=== PATIENT | male | born 1965 | race Hispanic/Latino ===

== ENCOUNTER 2019-01-01 16:04 | Emergency (ER) | payer BC ==
[~2019-01-01] VITALS: Ht 172.7 cm; Wt 88.5 kg
[~2019-01-01 16:04] MED LIST: QUINAPRIL HCL5 MG
--- OUTSIDE RECORDS SUMMARY | 2019-01-01 16:12 | XMS REPORT | Continuity of Care Document ---
Author Author Seva Search [facility] Seva Search Address Unknown Phone Unavailable Care Team Providers Care Portable Pinch Riveter Name Role Phone [facility] Visible Measures [place] Unavailable Unavailable Problems Problem Status Onset Date Classification Date Reported Comments Source Upper respiratory infection Problem 05/15/2016 [facility] Medications Medication Details Route Status Patient Instructions Ordering Provider Order Date Source Amoxicillin 875 MG / Clavulanate 125 MG Oral Tablet [Augmentin] Augmentin 875 mg-125 mg tablet Take 1 tablet every 12 hours by oral route for 7 days. Active [facility] quinapril 5 MG Oral Tablet quinapril 5 mg tablet Active [facility] Allergies, Adverse Reactions, Alerts No Known Medication Allergies Immunizations No Data Provided for This Section Results No Data Provided for This Section Pathology Reports No Data Provided for This Section Diagnostic Reports No Data Provided for This Section Consultation Notes No Data Provided for This Section Discharge Summaries No Data Provided for This Section History and Physicals No Data Provided for This Section Vital Signs Vital Sign Value Date Comments Source Diastolic (mm Hg) 84 05/15/2016 [facility] Height 68 05/15/2016 [facility] Systolic (mm Hg) 132 05/15/2016 [facility] Weight 195 05/15/2016 [facility] Encounters Location Location Details Encounter Type Encounter Number Reason For Visit Attending Provider ADM Date DC Date Status Source [place] - [facility] - [id number] Christel Forman, WEB UI DESIGNER: [address] [place] [address], Ph. [id number] Christel Forman 05/15/2016 [facility] Procedures No Data Provided for This Section Assessment and Plan No Data Provided for This Section Plan of Care No Data Provided for This Section Social History Social History Date Source Smoking Status Never Smoker 05/15/2016 [facility] Family History No Data Provided for This Section Advance Directives No Data Provided for This Section Functional Status No Data Provided for This Section
--- OUTSIDE RECORDS SUMMARY | 2019-01-01 16:12 | XMS REPORT | Encounter Summary ---
Author Organization Unknown Address [address] [place] [address] Phone [phone] Reason for Visit Medical Complaint; cough, congestion, drainage x 4 days Instructions 1. Upper respiratory infection Augmentin 875 mg-125 mg tablet Discussion Note: None recorded. Patient educational handouts: No information available. Plan of Care Reminders Provider Appointments None recorded. Lab None recorded. Referral None recorded. Procedures None recorded. Surgeries None recorded. Imaging None recorded. Medications Name Start Date Augmentin 875 mg-125 mg tablet Take 1 tablet every 12 hours by oral route for 7 days. quinapril 5 mg tablet Medications Administered None recorded. Vitals Height Weight BMI Blood Pressure 5 ft 8 in 195 lbs 29.6 132/84 Lab Results None recorded. Allergies Name Reaction Severity Onset NKDA Problems Name Status Onset Date Source Upper Respiratory Infection Active Encounter Procedures None recorded. Vaccine List None recorded. Social History Smoking Status Never Smoker Past Encounters 05/15/2016 Upper Respiratory Infection CARLA Duarte: [address] [address], Ph. History of Present Illness [id number] Reported By: Patient HPI: Location: head/sinuses. Quality: productive cough, colored phlegm, nasal/sinus congestion. Duration: 4days. Severity: moderate. Onset/Timing: gradual. Context: no sick contacts, no foreign travel, non-smoker. Associated Symptoms: no shortness of breath, no wheezing, no change in number of pillows needed to sleep at night, no sweats, no significant weight gain, no significant weight loss, no morning cough, no sore throat, no vomiting, no diarrhea, no rash, no nausea, no fever, no muscle aches, no headache, yellow-green, thick sputum Review of Systems Basic Reported By: Patient Constitutional: Constitutional: fever Eyes: Eyes: no eye complaints Tjdd-Jtoi-Llydl-Throat: Ears: no ear complaints. Nose: nose/sinus problems. Mouth/Throat: no sore throat, no bleeding gums, no mouth complaints, no teeth problems Cardiovascular: Cardiovascular: no chest pain, no shortness of breath, no known heart murmur Respiratory: Respiratory: no wheezing, no shortness of breath, cough Gastrointestinal: Gastrointestinal: no abdominal pain, no vomiting / diarrhea Genitourinary: Genitourinary: no urinary complaints, no discharge Musculoskeletal: Musculoskeletal: no muscle aches, no muscle weakness, no arthralgias/joint pain, no back pain Skin: Skin: no abnormal / changing mole, no jaundice, no rashes Neurologic: Neurologic: no loss of consciousness, no weakness, no numbness, no seizures, no dizziness, no headaches Physical Exam Adult Basic, Adult Male Complete Constitutional: General Appearance: healthy-appearing, well-nourished, well-developed. Level of Distress: NAD. Ambulation: ambulating normally Psychiatric: Mental Status: active and alert. Orientation: to time, to place, to person Eyes: Pupils: PERRLA Sig-Rgbh-Hcrto-Throat: Ears: no lesions on external ear, no outer ear tenderness, TM mobility normal, TM erythematous, middle ear fluid. Hearing: no hearing loss. Nose: nares patent, no septal deviation, nasal passages clear, no sinus tenderness, nasal discharge, nasal discharge--rhinorrhea, post nasal drip. Lips, Teeth, and Gums: no mouth or lip ulcers, no bleeding gums, normal dentition. Oropharynx: moist mucous membranes, no erythema, no exudates, tonsils not enlarged Neck: Lymph Nodes: no cervical LAD, no supraclavicular LAD Lungs: Respiratory effort: no dyspnea, no tachypnea, no use of accessory muscles, no intercostal retractions. Auscultation: breath sounds normal, good air movement Cardiovascular: Heart Auscultation: RRR, no murmurs. Pulses including femoral / pedal: normal throughout Musculoskeletal:: Motor Strength and Tone: normal motor strength. Joints, Bones, and Muscles: normal movement of all extremities. Extremities: no cyanosis, no edema Neurologic: Gait and Station: normal gait, normal station. Cranial Nerves: grossly intact. Sensation: grossly intact Skin: Inspection and palpation: no rash, no lesions
--- OUTSIDE RECORDS SUMMARY | 2019-01-01 16:12 | XMS REPORT | Clinical Summary ---
Author Author [facility] Address Unknown Phone Unavailable Care Team Providers Care Barrel Charrer Helper Name Role Phone Jaime Ramon MD PCP Hugo Zamora Danni Unavailable Allergies No Known Allergies Medications End Date Status Medication Sig Dispensed Refills Start Date Active quinapril (ACCUPRIL) 10 Take 10 mg by 0 MG tablet mouth 2 (two) times daily. 12/07/2018 acetaminophen (TYLENOL) Take 2 90 tablet 0 325 MG tablet tablets (650 8 mg total) by mouth every 6 (six) hours for 360 days. 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 Encounters Care Team Description Date Type Specialty Yoon Michele, GUMARO Results 11/28/2018 Telephone Transplant Yoon Michele, RN Follow-up 11/13/2018 Telephone Transplant Yoon Michele, RN Follow-up 07/17/2018 Telephone Transplant Rommel Silveira MD Left sided chest pain (Primary Dx); Essential hypertension 07/16/2018 Emergency Emergency Medicine - 07/17/2018 07/16/2018 Orders Only General Internal Medicine 07/16/2018 Travel Yoon Michele, RN Results 05/28/2018 Telephone Transplant Yoon Michele, RN Appointment 05/17/2018 Telephone Transplant Yoon Michele, RN Results 04/16/2018 Telephone Transplant Yoon Michele, RN Follow-up 04/09/2018 Telephone Transplant Yoon Michele, RN Follow-up 04/02/2018 Telephone Transplant after 12/31/2017 Family History Medical History Relation Name Comments Diabetes Brother Heart attack Brother Hypertension Brother No Known Problem Daughter No Known Problem Daughter No Known Problem Daughter Coronary artery disease Father s/p ACB Diabetes Father Hypertension Father Stroke Father No Known Problem Maternal unknown Grandfather No Known Problem Maternal unknown Grandmother Diabetes Maternal Uncle Diabetes Maternal Uncle Diabetes Mother No Known Problem Paternal unknown Grandfather No Known Problem Paternal unknown Grandmother Hypertension Paternal Uncle Relation Name Status Comments Brother Alive Daughter Alive Daughter Alive Daughter Alive Father Maternal Grandfather Maternal Grandmother Maternal Uncle Maternal Uncle Alive Mother Alive Paternal Grandfather Paternal Grandmother Paternal Uncle Alive Social History Date Tobacco Use Types Packs/Day Years Used Started: 2016 Former Smoker Cigarettes Smokeless Tobacco: Never Used Tobacco Cessation: Ready to Quit: Yes; Counseling Given: Yes Comments: smoked a long time ago, smoked again x 1 year and quit 09/2017 Alcohol Use Drinks/Week oz/Week Comments Yes 2 beers/month Sex Assigned at Date Recorded Not on file Industry Job Start Date Occupation Not on file Not on file Not on file Travel End Travel History Travel Start No recent travel history available. Last Filed Vital Signs Time Taken Vital Sign Reading 07/16/2018 10:00 PM [employer]IDE [employer]ER TE[employer] Blood Pressure 146/89 07/16/2018 7:48 PM [employer] Pulse 64 07/16/2018 7:48 PM [employer]IDE [employer]ER TESTER Temperature 37.3 C (99.2 F) 07/16/2018 7:48 PM [employer]IDE [employer] TESTER Respiratory Rate 16 07/16/2018 10:00 PM INSIDE METER TESTER Oxygen Saturation 97% - Inhaled Oxygen - Concentration 07/16/2018 7:47 PM INSIDE METER TESTER Weight 88.5 kg (195 lb) 07/16/2018 7:47 PM INSIDE [employer]ER TE[employer] Height 172.7 cm (5' 8") 07/16/2018 7:47 PM INSIDE [employer]ER TESTER Body Mass Index 29.65 Plan of Treatment Not on file Procedures Comments Procedure Name Priority Date/Time Associated Diagnosis REPORT OF PROCEDURE - 07/18/2018 ENDOSCOPY SCAN 2:57 PM INSIDE METER TESTER ECG 12-LEAD Routine 07/16/2018 11:40 PM INSIDE METER TESTER TROPONIN I STAT 07/16/2018 11:01 PM INSIDE METER TESTER ED ECG INTERPRETATION Routine 07/16/2018 9:03 PM INSIDE METER TESTER CBC W/PLT COUNT & AUTO STAT 07/16/2018 DIFFERENTIAL 8:38 PM INSIDE METER TESTER CREATINE KINASE (CK) STAT 07/16/2018 8:38 PM INSIDE METER TESTER MAGNESIUM STAT 07/16/2018 8:38 PM INSIDE METER TESTER B-TYPE NATRIURETIC FACTOR STAT 07/16/2018 (BNP) 8:38 PM INSIDE METER TESTER TROPONIN I STAT 07/16/2018 8:38 PM INSIDE METER TESTER BASIC METABOLIC PANEL (7) STAT 07/16/2018 8:38 PM INSIDE METER TESTER CBC W/PLT COUNT & AUTO STAT 07/16/2018 DIFFERENTIAL 8:38 PM INSIDE METER TESTER XR CHEST 1 VIEW STAT 07/16/2018 PORTABLE/BEDSIDE 8:37 PM INSIDE METER TESTER ECG 12-LEAD STAT 07/16/2018 7:41 PM INSIDE METER TESTER ECG 12-LEAD Routine 07/16/2018 7:41 PM INSIDE METER TESTER Procedure Note - Interface, External Ris In - 07/16/2018 8:58 PM INSIDE METER TESTER Ventricula r Rate 63 BPM Atrial Rate 63 BPM P-R Interval 132 ms QRS Duration 90 ms Q-T Interval 384 ms QTC Calculatio n(Bazett) 392 ms P [place] 37 degrees R R[place] 55 degrees T [place] 18 degrees Normal sinus rhythm Normal ECG When compared with ECG of 8 08:40, No significan t change was found after 12/31/2017 Results * EKG-SCANNED (07/18/2018 2:57 PM INSIDE METER TESTER) Narrative Performed At * ECG 12 lead (07/16/2018 11:40 PM INSIDE METER TESTER) Only the most recent of 2 results within the time period is included. Specimen Narrative Performed At Ventricular Rate 59 BPM GE MUSE Atrial Rate 59 BPM P-R Interval 122 ms QRS Duration 86 ms Q-T Interval 396 ms QTC Calculation(Bazett) 392 ms P [place] 47 degrees R [place] 34 degrees T [place] 24 degrees Sinus bradycardia Otherwise normal ECG When compared with ECG of 16-JUL-2018 19:41, No significant change was found Confirmed by MD Moore Roberto ([id number]) on 07/18/2018 10:29:27 AM Procedure Note Interface, External Ris In - 07/18/2018 10:29 AM INSIDE METER TESTER Ventricular Rate 59 BPM Atrial Rate 59 BPM P-R Interval 122 ms QRS Duration 86 ms Q-T Interval 396 ms QTC Calculation(Bazett) 392 ms P [place] 47 degrees R [place] 34 degrees T [place] 24 degrees Sinus bradycardia Otherwise normal ECG When compared with ECG of 16-JUL-2018 19:41, No significant change was found Confirmed by MD Moore Roberto ([id number]) on 07/18/2018 10:29:27 AM Performing Organization Address City/State/Zipcode Phone Number GE MUSE * Troponin I (07/16/2018 11:01 PM INSIDE METER TESTER) Only the most recent of 2 results within the time period is included. Troponin I <0.01 0.00 - 0.03 ng/mL [facility] Specimen Blood Narrative Performed At Troponin I (TnI) levels must be interpreted in the context of the presenting [facility] symptoms and the clinical findings. Elevated TnI levels indicate myocardial [facility] damage, but are not specific for ischemic heart disease. Elevated TnI levels are seen in patients with other cardiac conditions (including myocarditis and congestive heart failure), and slight TnI elevations occur in patients with other conditions, including sepsis, renal failure, acidosis, acute neurological disease, and persistent tachyarrhythmia. Performing Organization Address City/State/Zipcode Phone Number [facility] [address] [place] [address] [phone] [place] [address] * ECG/EKG Interpretation (07/16/2018 9:03 PM INSIDE METER TESTER) Narrative Performed At Rommel Silveira MD 07/17/2018 12:06 AM ECG/EKG Interpretation Date/Time: 07/16/2018 9:05 PM Performed by: Rommel Silveira MD Authorized by: Rommel Silveira MD The ECG was interpreted by ED physician. The ECG is interpreted as sinus rhythm. Rate is normal rate. Heart rate is [address] segments normal. T-wave inversion in lead(s) III. Clinical Impression: non-specific ECGECG reviewed and does not meet STEMI criteria. Patient tolerance: Patient tolerated the procedure well with no immediate complications * CBC with platelet count + automated diff (07/16/2018 8:38 PM INSIDE METER TESTER) WBC 10.4 3.5 - 10.5 K/L [facility] RBC 5.51 4.63 - 6.08 M/L [facility] Hemoglobin 16.2 13.7 - 17.5 GM/DL [facility] Hematocrit 48.1 40.1 - 51.0 % [facility] MCV 87.3 79.0 - 92.2 fL [facility] MCH 29.4 25.7 - 32.2 pg [facility] MCHC 33.7 32.3 - 36.5 GM/DL [facility] RDW 11.8 11.6 - 14.4 % [facility] Platelets 190 150 - 450 K/CU MM [facility] MPV 12.2 9.4 - 12.4 fL [facility] nRBC 0 0 - 0 /100 WBC [facility] % Neutros 76 % [facility] % Lymphs 17 % [facility] % Monos 6 % [facility] % Eos 1 % [facility] % Baso 1 % [facility] # Neutros 7.92 (H) 1.78 - 5.38 K/L [facility] # Lymphs 1.73 1.32 - 3.57 K/L [facility] # Monos 0.61 0.30 - 0.82 K/L [facility] # Eos 0.11 0.04 - 0.54 K/L [facility] # Baso 0.05 0.01 - 0.08 K/L [facility] Immature 0 0 - 1 % [facility] Granulocytes-[facility] Specimen Blood Performing Organization Address City/State/Zipcode Phone Number [address] * B-type Natriuretic Factor (BNP) (07/16/2018 8:38 PM INSIDE METER TESTER) BNP 58 0 - 100 pg/mL [facility] Specimen Blood Performing Organization Address City/[facility]/Zipcode Phone Number [address] * Magnesium (07/16/2018 8:38 PM INSIDE METER TESTER) Magnesium 2.4Comment: Specimen slightly 1.6 - 2.6 mg/dL [facility] Specimen Blood Performing Organization Address City/[facility] Phone Number [address] * Creatine Kinase (CK) (07/16/2018 8:38 PM INSIDE METER TESTER) Total CK 146 29 - 200 U/L [facility] Specimen Blood Performing Organization Address City/[facility] Phone Number [address] * Basic Metabolic Panel (07/16/2018 8:38 PM INSIDE METER TESTER) Sodium 140 136 - 145 meq/L [facility] Potassium 4.3Comment: Specimen slightly 3.5 - 5.1 meq/L [facility] Chloride 104 98 - 107 meq/L [facility] CO2 26 22 - 29 meq/L [facility] BUN 24 (H) 7 - 21 mg/dL [facility] Creatinine 1.44 (H)Comment: Specimen 0.57 - 1.25 mg/dL [facility] Glucose 112 (H) 70 - 105 mg/dL [facility] Calcium 9.9 8.4 - 10.2 mg/dL [facility] EGFR 52Comment: ESTIMATED GFR IS mL/min/1.[address] [facility] NOT ACCURATE CREATININE [facility] CLEARANCE IN PREDICTING GLOMERULAR FILTRATION RATE. ESTIMATED GFR IS NOT APPLICABLE FOR DIALYSIS PATIENTS. Specimen Blood Performing Organization Address City/State/Zipcode Phone Number [facility] [address] [place] [address] MEDICAL CENTER * XR chest 1 view portable / bedside (07/16/2018 8:37 PM INSIDE METER TESTER) Specimen Narrative Performed At FINAL REPORT GE RIS INDICATION: CHEST PAIN COMPARISON: November 29, 2017 TECHNIQUE: Single frontal view of the chest. FINDINGS: Lungs and pleura: Decrease in aspiration compared to prior exam. Mild basilar subsegmental atelectasis.. No effusion. Heart and mediastinum: Normal heart size. Unremarkable mediastinal contours. Osseous structures: No acute abnormality. Other: None. IMPRESSION: Mild basilar subsegmental atelectasis Signed: Adwoa Diego MD Report Verified Date/Time:07/16/2018 21:32:35 Reading Location: [address] Neuro Reading Room Procedure Note Interface, External Ris In - 07/16/2018 9:34 PM INSIDE METER TESTER FINAL REPORT INDICATION: CHEST PAIN COMPARISON: November 29, 2017 TECHNIQUE: Single frontal view of the chest. FINDINGS: Lungs and pleura: Decrease in aspiration compared to prior exam. Mild basilar subsegmental atelectasis.. No effusion. Heart and mediastinum: Normal heart size. Unremarkable mediastinal contours. Osseous structures: No acute abnormality. Other: None. IMPRESSION: Mild basilar subsegmental atelectasis Signed: Adwoa Diego MD Report Verified Date/Time: 07/16/2018 21:32:35 Reading Location: [address] Neuro Reading Room Performing Organization Address City/State/Zipcode Phone Number [facility] after 12/31/2017 Insurance Payer Benefit Subscriber ID Type Phone Address Plan / Group [employer]UE [employer] BCBS OS xxxxxxxxxxxx PPO [phone] [address] POS/PPO/[place] [address] O Advance Directives For more information, please contact: [facility] [address] [place] [id number] Date Inactivated Comments Code Status Date Activated 12/13/2017 12:18 AM Full Code 12/10/2017 3:07 PM This code status was determined by: Patient 12/10/2017 3:07 PM Full Code 12/10/2017 5:40 AM This code status was determined by: Patient
--- OUTSIDE RECORDS SUMMARY | 2019-01-01 16:13 | XMS REPORT ---
Author Author [facility] Address Unknown Phone Unavailable Care Team Providers Care Utilization Coordinator Name Role Phone MILLER THOMPSON Unavailable Unavailable CLARITA RODRIGUEZ Unavailable Unavailable YOSELYN OVERTON Unavailable Unavailable Problems This patient has no known problems. Allergies, Adverse Reactions, Alerts This patient has no known allergies or adverse reactions. Medications This patient has no known medications. Results Test Description Test Time Test Comments Text Results Atomic Results Result Comments TROPONIN I 2018-07-16 23:54:00 TROPONIN I (BEAKER) (test jwfp=617) < ng/mL 0.00-0.03 Troponin I (TnI) levels must be interpreted in the context of the presenting sym ptoms and the clinical findings. Elevated TnI levels indicate myocardial damage, but are not specific for ischemic heart disease. Elevated TnI levels are seen in patients with other cardiac conditions (including myocarditis and congestive h eart failure), and slight TnI elevations occur in patients with other conditions , including sepsis, renal failure, acidosis, acute neurological disease, and per sistent tachyarrhythmia.RAD, CHEST, 1 VIEW, NON [id number] 21:32:00Reason for exam:->CHEST PAINFINAL REPORT INDICATION: CHEST PAIN COMPARISON: November 29, 2017 TECHNIQUE: Single frontal view of the chest. FINDINGS: Lungs and pleura: Decrease in aspiration compared to prior exam. Mild basilar subsegmental atelectasis.. No effusion.Heart and mediastinum: Normal heart size. Unremarkable mediastinal contours.Osseous structures: No acute abnormality.Other: None. IMPRESSION: Mild basilar subsegmental atelectasis Signed: Abigail Deigo Verified Date/Time: 07/16/2018 21:32:35 Reading Location: [address] Neuro Reading Room ONIN [id number] 21:19:00* Test Item Value Reference Range Comments TROPONIN I (BEAKER) (test dfke=521) < ng/mL 0.00-0.03 Troponin I (TnI) levels must be interpreted in the context of the presenting sym ptoms and the clinical findings. Elevated TnI levels indicate myocardial damage, but are not specific for ischemic heart disease. Elevated TnI levels are seen in patients with other cardiac conditions (including myocarditis and congestive h eart failure), and slight TnI elevations occur in patients with other conditions , including sepsis, renal failure, acidosis, acute neurological disease, and per sistent tachyarrhythmia.B-TYPE NATRIURETIC FACTOR (BNP)2018-07-16 21:19:00* Test Item Value Reference Range Comments B-TYPE NATRIURETIC PEPTIDE (BEAKER) (test lhdc=388) 58 pg/mL 0-100 [id number] 21:12:00* Test Item Value Reference Range Comments MAGNESIUM (BEAKER) (test hlms=304) 2.4 mg/dL 1.6-2.6 Specimen slightly hemolyzed BASIC METABOLIC [id number] 21:12:00* Test Item Value Reference Range Comments SODIUM (BEAKER) (test fjqv=961) 140 meq/L 136-145 POTASSIUM (BEAKER) (test cydw=318) 4.3 meq/L 3.5-5.1 Specimen slightly hemolyzed CHLORIDE (BEAKER) (test gfrv=094) 104 meq/L 98-107 CO2 (BEAKER) (test wmfu=568) 26 meq/L 22-29 BLOOD UREA NITROGEN (BEAKER) (test phnq=942) 24 mg/dL 7-21 CREATININE (BEAKER) (test xtif=075) 1.44 mg/dL 0.57-1.25 Specimen slightly hemolyzed GLUCOSE RANDOM (BEAKER) (test yfes=255) 112 mg/dL 70-105 CALCIUM (BEAKER) (test uucd=399) 9.9 mg/dL 8.4-10.2 EGFR (BEAKER) (test pqoj=6771) 52 mL/min/1.73 sq m ESTIMATED GFR IS NOT ACCURATE CREATININE CLEARANCE IN PREDICTING GLOMERULAR FILTRATION RATE. ESTIMATED GFR IS NOT APPLICABLE FOR DIALYSIS PATIENTS. CREATINE KINASE (CK)2018-07-16 21:12:00* Test Item Value Reference Range Comments CREATINE KINASE TOTAL (BEAKER) (test vshc=370) 146 U/L 29-200 CBC W/PLT COUNT & AUTO [id number] 20:46:00* Test Item Value Reference Range Comments WHITE BLOOD CELL COUNT (BEAKER) (test poei=073) 10.4 K/ L 3.5-10.5 RED BLOOD CELL COUNT (BEAKER) (test uopo=349) 5.51 M/ L 4.63-6.08 HEMOGLOBIN (BEAKER) (test qmjk=563) 16.2 GM/DL 13.7-17.5 HEMATOCRIT (BEAKER) (test tuou=777) 48.1 % 40.1-51.0 MEAN CORPUSCULAR VOLUME (BEAKER) (test gdnp=463) 87.3 fL 79.0-92.2 MEAN CORPUSCULAR HEMOGLOBIN (BEAKER) (test yxym=171) 29.4 pg 25.7-32.2 MEAN CORPUSCULAR HEMOGLOBIN CONC (BEAKER) (test yagj=770) 33.7 GM/DL 32.3-36.5 RED CELL DISTRIBUTION WIDTH (BEAKER) (test ajpy=809) 11.8 % 11.6-14.4 PLATELET COUNT (BEAKER) (test dcqq=214) 190 K/CU MM 150-450 MEAN PLATELET VOLUME (BEAKER) (test xbpr=511) 12.2 fL 9.4-12.4 NUCLEATED RED BLOOD CELLS (BEAKER) (test yocm=098) 0 /100 WBC 0-0 NEUTROPHILS RELATIVE PERCENT (BEAKER) (test osgq=059) 76 % LYMPHOCYTES RELATIVE PERCENT (BEAKER) (test lbjp=145) 17 % MONOCYTES RELATIVE PERCENT (BEAKER) (test wdyc=103) 6 % EOSINOPHILS RELATIVE PERCENT (BEAKER) (test liao=017) 1 % BASOPHILS RELATIVE PERCENT (BEAKER) (test szsc=218) 1 % NEUTROPHILS ABSOLUTE COUNT (BEAKER) (test urzi=530) 7.92 K/ L 1.78-5.38 LYMPHOCYTES ABSOLUTE COUNT (BEAKER) (test pzsj=544) 1.73 K/ L 1.32-3.57 MONOCYTES ABSOLUTE COUNT (BEAKER) (test gjgz=412) 0.61 K/ L 0.30-0.82 EOSINOPHILS ABSOLUTE COUNT (BEAKER) (test ausa=204) 0.11 K/ L 0.04-0.54 BASOPHILS ABSOLUTE COUNT (BEAKER) (test spfp=310) 0.05 K/ L 0.01-0.08 IMMATURE GRANULOCYTES-RELATIVE PERCENT (BEAKER) (test clxq=3467) 0 % 0-1 URINE [id number] 09:07:00* Test Item Value Reference Range Comments CULTURE (BEAKER) (test itnb=8924) No growth MICROALBUMIN, RANDOM [id number] 15:09:00* Test Item Value Reference Range Comments MICROALBUMIN URINE (BEAKER) (test blcu=2498) < mg/dL Reference Range: No NormalsCREATININE, RANDOM [id number] 15:06:00* Test Item Value Reference Range Comments CREATININE URINE (BEAKER) (test bcdi=028) 179.6 mg/dL Reference Range: No NormalsPROTEIN, RANDOM [id number] 15:06:00* Test Item Value Reference Range Comments PROTEIN, URINE (BEAKER) (test puqr=9057) 9 mg/dL 0-14 URINALYSIS W/ [id number] 12:33:00* Test Item Value Reference Range Comments COLOR (BEAKER) (test jdvu=215) Yellow CLARITY (BEAKER) (test jasf=817) Clear SPECIFIC GRAVITY UA (BEAKER) (test bnhb=160) 1.016 1.001-1.035 PH UA (BEAKER) (test pqpf=848) 5.5 5.0-8.0 PROTEIN UA (BEAKER) (test pmpa=820) Negative Negative GLUCOSE UA (BEAKER) (test fvpn=122) Negative Negative KETONES UA (BEAKER) (test tiik=985) Negative Negative BILIRUBIN UA (BEAKER) (test okif=004) Negative Negative BLOOD UA (BEAKER) (test zliz=572) Negative Negative NITRITE UA (BEAKER) (test cbwv=543) Negative Negative LEUKOCYTE ESTERASE UA (BEAKER) (test rjde=590) Negative Negative UROBILINOGEN UA (BEAKER) (test gued=795) 0.2 mg/dL 0.2-1.0 RBC UA (BEAKER) (test gqlm=273) 0 /HPF WBC UA (BEAKER) (test yejd=986) 1 /HPF MUCUS (BEAKER) (test ewsp=6023) Rare SQUAMOUS EPITHELIAL (BEAKER) (test ygkt=222) < /HPF SOURCE(BEAKER) (test xnlr=0341) BASIC METABOLIC [id number] 12:27:00* Test Item Value Reference Range Comments SODIUM (BEAKER) (test minw=392) 136 meq/L 136-145 POTASSIUM (BEAKER) (test eemi=754) 4.2 meq/L 3.5-5.1 CHLORIDE (BEAKER) (test uymj=005) 102 meq/L 98-107 CO2 (BEAKER) (test gqgw=605) 27 meq/L 22-29 BLOOD UREA NITROGEN (BEAKER) (test yfoa=469) 22 mg/dL 7-21 CREATININE (BEAKER) (test wsom=854) 1.39 mg/dL 0.57-1.25 GLUCOSE RANDOM (BEAKER) (test ostq=375) 83 mg/dL 70-105 CALCIUM (BEAKER) (test oklc=254) 9.6 mg/dL 8.4-10.2 EGFR (BEAKER) (test digi=0939) 54 mL/min/1.73 sq m ESTIMATED GFR IS NOT ACCURATE CREATININE CLEARANCE IN PREDICTING GLOMERULAR FILTRATION RATE. ESTIMATED GFR IS NOT APPLICABLE FOR DIALYSIS PATIENTS. CBC W/PLT COUNT & AUTO [id number] 12:05:00* Test Item Value Reference Range Comments WHITE BLOOD CELL COUNT (BEAKER) (test trbh=601) 6.9 K/ L 3.5-10.5 RED BLOOD CELL COUNT (BEAKER) (test zqvg=782) 5.63 M/ L 4.63-6.08 HEMOGLOBIN (BEAKER) (test cthw=704) 16.8 GM/DL 13.7-17.5 HEMATOCRIT (BEAKER) (test zswc=720) 48.8 % 40.1-51.0 MEAN CORPUSCULAR VOLUME (BEAKER) (test qfsb=645) 86.7 fL 79.0-92.2 MEAN CORPUSCULAR HEMOGLOBIN (BEAKER) (test xpcq=282) 29.8 pg 25.7-32.2 MEAN CORPUSCULAR HEMOGLOBIN CONC (BEAKER) (test loxa=955) 34.4 GM/DL 32.3-36.5 RED CELL DISTRIBUTION WIDTH (BEAKER) (test xvyj=612) 11.6 % 11.6-14.4 PLATELET COUNT (BEAKER) (test bsdv=990) 178 K/CU MM 150-450 MEAN PLATELET VOLUME (BEAKER) (test rqoa=830) 12.9 fL 9.4-12.4 NUCLEATED RED BLOOD CELLS (BEAKER) (test tuam=334) 0 /100 WBC 0-0 NEUTROPHILS RELATIVE PERCENT (BEAKER) (test hfoo=667) 58 % LYMPHOCYTES RELATIVE PERCENT (BEAKER) (test ypxl=959) 31 % MONOCYTES RELATIVE PERCENT (BEAKER) (test hwpk=232) 8 % EOSINOPHILS RELATIVE PERCENT (BEAKER) (test rfad=571) 2 % BASOPHILS RELATIVE PERCENT (BEAKER) (test ymxg=978) 1 % NEUTROPHILS ABSOLUTE COUNT (BEAKER) (test hnst=616) 3.99 K/ L 1.78-5.38 LYMPHOCYTES ABSOLUTE COUNT (BEAKER) (test tkbc=919) 2.10 K/ L 1.32-3.57 MONOCYTES ABSOLUTE COUNT (BEAKER) (test bwqk=441) 0.55 K/ L 0.30-0.82 EOSINOPHILS ABSOLUTE COUNT (BEAKER) (test mtie=542) 0.14 K/ L 0.04-0.54 BASOPHILS ABSOLUTE COUNT (BEAKER) (test kfom=269) 0.05 K/ L 0.01-0.08 IMMATURE GRANULOCYTES-RELATIVE PERCENT (BEAKER) (test xncp=0284) 0 % 0-1 BASIC METABOLIC [id number] 06:16:00* Test Item Value Reference Range Comments SODIUM (BEAKER) (test fotw=173) 132 meq/L 136-145 POTASSIUM (BEAKER) (test oyqt=094) 4.7 meq/L 3.5-5.1 CHLORIDE (BEAKER) (test vpcz=520) 100 meq/L 98-107 CO2 (BEAKER) (test gjen=637) 24 meq/L 22-29 BLOOD UREA NITROGEN (BEAKER) (test djiq=631) 16 mg/dL 7-21 CREATININE (BEAKER) (test yydz=071) 1.45 mg/dL 0.57-1.25 GLUCOSE RANDOM (BEAKER) (test ulko=609) 82 mg/dL 70-105 CALCIUM (BEAKER) (test jkjd=277) 9.3 mg/dL 8.4-10.2 EGFR (BEAKER) (test abri=4911) 52 mL/min/1.73 sq m ESTIMATED GFR IS NOT ACCURATE CREATININE CLEARANCE IN PREDICTING GLOMERULAR FILTRATION RATE. ESTIMATED GFR IS NOT APPLICABLE FOR DIALYSIS PATIENTS. HEMOGLOBIN AND [id number] 05:45:00* Test Item Value Reference Range Comments HEMOGLOBIN (BEAKER) (test teun=022) 15.1 GM/DL 13.7-17.5 HEMATOCRIT (BEAKER) (test ryfp=794) 45.3 % 40.1-51.0 BASIC METABOLIC [id number] 07:08:00* Test Item Value Reference Range Comments SODIUM (BEAKER) (test lycv=166) 135 meq/L 136-145 POTASSIUM (BEAKER) (test vzjx=057) 4.5 meq/L 3.5-5.1 CHLORIDE (BEAKER) (test kqeq=108) 103 meq/L 98-107 CO2 (BEAKER) (test dbmx=762) 24 meq/L 22-29 BLOOD UREA NITROGEN (BEAKER) (test bnzf=314) 15 mg/dL 7-21 CREATININE (BEAKER) (test zaoa=721) 1.56 mg/dL 0.57-1.25 GLUCOSE RANDOM (BEAKER) (test ejms=767) 106 mg/dL 70-105 CALCIUM (BEAKER) (test vmkz=111) 9.4 mg/dL 8.4-10.2 EGFR (BEAKER) (test tfih=1315) 47 mL/min/1.73 sq m ESTIMATED GFR IS NOT ACCURATE CREATININE CLEARANCE IN PREDICTING GLOMERULAR FILTRATION RATE. ESTIMATED GFR IS NOT APPLICABLE FOR DIALYSIS PATIENTS. HEMOGLOBIN AND [id number] 06:34:00* Test Item Value Reference Range Comments HEMOGLOBIN (BEAKER) (test ofne=653) 15.4 GM/DL 13.7-17.5 HEMATOCRIT (BEAKER) (test vqot=989) 44.6 % 40.1-51.0 BASIC METABOLIC [id number] 13:29:00* Test Item Value Reference Range Comments SODIUM (BEAKER) (test ozgb=003) 136 meq/L 136-145 POTASSIUM (BEAKER) (test yjnx=380) 4.9 meq/L 3.5-5.1 CHLORIDE (BEAKER) (test clkj=131) 101 meq/L 98-107 CO2 (BEAKER) (test wtou=440) 24 meq/L 22-29 BLOOD UREA NITROGEN (BEAKER) (test ckux=190) 12 mg/dL 7-21 CREATININE (BEAKER) (test vtcu=019) 1.29 mg/dL 0.57-1.25 GLUCOSE RANDOM (BEAKER) (test telx=869) 132 mg/dL 70-105 CALCIUM (BEAKER) (test kids=282) 9.1 mg/dL 8.4-10.2 EGFR (BEAKER) (test ollm=9166) 59 mL/min/1.73 sq m ESTIMATED GFR IS NOT ACCURATE CREATININE CLEARANCE IN PREDICTING GLOMERULAR FILTRATION RATE. ESTIMATED GFR IS NOT APPLICABLE FOR DIALYSIS PATIENTS. HEMOGLOBIN AND [id number] 12:50:00* Test Item Value Reference Range Comments HEMOGLOBIN (BEAKER) (test fcps=247) 17.7 GM/DL 13.7-17.5 HEMATOCRIT (BEAKER) (test jqbd=149) 50.7 % 40.1-51.0 HEPATITIS C PCR, [id number] 18:57:00* Test Item Value Reference Range Comments HCV RESULT COMPONENT (BEAKER) (test zusb=9687) HCV RNA not detected HCV RNA not detected This test uses a Real-Time Polymerase Chain Reaction (RT-PCR) methodology and wa s performed using [employer] Ampliprep/VIRGIL TaqMan HCV test kit version 2.0 ([employer]).Reportable range for this assay is 15 - 100,000,000 IU per mL (1.18 - 8.00 Log IU/mL).URINE [id number] 14:08:00* Test Item Value Reference Range Comments CULTURE (BEAKER) (test rmia=7229) >100,000 col/mL skin [place] [id number] 00:50:00* Test Item Value Reference Range Comments RPR SCREEN (BEAKER) (test ultu=131) Nonreactive Nonreactive URINALYSIS W/ [id number] 11:02:00* Test Item Value Reference Range Comments COLOR (BEAKER) (test cukx=377) Yellow CLARITY (BEAKER) (test zltd=303) Clear SPECIFIC GRAVITY UA (BEAKER) (test aeku=422) 1.026 1.001-1.035 PH UA (BEAKER) (test ffaf=548) 5.5 5.0-8.0 PROTEIN UA (BEAKER) (test dfif=711) 10 mg/dL Negative GLUCOSE UA (BEAKER) (test dyyo=747) Negative Negative KETONES UA (BEAKER) (test oueq=279) Negative Negative BILIRUBIN UA (BEAKER) (test tcmw=190) Negative Negative BLOOD UA (BEAKER) (test bjsd=017) Negative Negative NITRITE UA (BEAKER) (test ujyu=799) Negative Negative LEUKOCYTE ESTERASE UA (BEAKER) (test suxz=550) Negative Negative UROBILINOGEN UA (BEAKER) (test szka=076) 0.2 mg/dL 0.2-1.0 RBC UA (BEAKER) (test lwln=850) < /HPF WBC UA (BEAKER) (test luao=153) 1 /HPF MUCUS (BEAKER) (test xvlg=2761) Occasional SQUAMOUS EPITHELIAL (BEAKER) (test xbap=548) < /HPF CALCIUM OXALATE CRYSTALS (BEAKER) (test tsqe=898) Moderate SOURCE(BEAKER) (test zxdw=8080) HEPATITIS B SURFACE [id number] 10:00:00* Test Item Value Reference Range Comments HEPATITIS B SURFACE ANTIBODY (BEAKER) (test ubec=797) < mIU/mL <8.0 Pre-op testingPre-op testingPre-op testingPre-op testingHEPATITIS B SURFACE [id number] 09:39:00* Test Item Value Reference Range Comments HEPATITIS B SURFACE ANTIGEN (2) (BEAKER) (test muqn=8596) Nonreactive Nonreactive Pre-op testingPre-op testingPre-op testingPre-op testingHEPATITIS B CORE ANTIBODY, [id number] 09:39:00* Test Item Value Reference Range Comments HEPATITIS B CORE IGM ANTIBODY (BEAKER) (test esey=201) Nonreactive Nonreactive Pre-op testingPre-op testingPre-op testingPre-op testingHIV-1 ANTIGEN WITH HIV- 1/2 [id number] 09:39:00* Test Item Value Reference Range Comments HIV-1 ANTIGEN WITH HIV 1\T\2 ANTIBODY (2) (BEAKER) (test tiev=7158) Nonreactive Nonreactive Pre-op testingPre-op testingPre-op testingPre-op [id number] 09:12:00* Test Item Value Reference Range Comments PROTIME (BEAKER) (test akdd=579) 13.2 seconds 11.7-14.7 INR (BEAKER) (test njne=892) 1.0 <=5.9 PARTIAL THROMBOPLASTIN TIME (BEAKER) (test lvvm=445) 30.0 seconds 22.5-36.0 RECOMMENDED COUMADIN/WARFARIN INR THERAPY RANGESSTANDARD DOSE: 2.0 - 3.0 Inclu shahab: PROPHYLAXIS for venous thrombosis, systemic embolization; TREATMENT for richard ous thrombosis and/or pulmonary embolus.HIGH RISK: Target INR is 2.5-3.5 for pat ients with mechanical heart valves.Pre-op testingPre-op testingCBC W/PLT COUNT & AUTO [id number] 09:02:00* Test Item Value Reference Range Comments WHITE BLOOD CELL COUNT (BEAKER) (test lebw=542) 9.3 K/ L 3.5-10.5 RED BLOOD CELL COUNT (BEAKER) (test qrks=100) 5.90 M/ L 4.63-6.08 HEMOGLOBIN (BEAKER) (test myzt=300) 17.6 GM/DL 13.7-17.5 HEMATOCRIT (BEAKER) (test wjuy=745) 50.6 % 40.1-51.0 MEAN CORPUSCULAR VOLUME (BEAKER) (test oaay=479) 85.8 fL 79.0-92.2 MEAN CORPUSCULAR HEMOGLOBIN (BEAKER) (test yqmu=503) 29.8 pg 25.7-32.2 MEAN CORPUSCULAR HEMOGLOBIN CONC (BEAKER) (test iibk=407) 34.8 GM/DL 32.3-36.5 RED CELL DISTRIBUTION WIDTH (BEAKER) (test xnfu=363) 11.9 % 11.6-14.4 PLATELET COUNT (BEAKER) (test lhcm=219) 188 K/CU MM 150-450 MEAN PLATELET VOLUME (BEAKER) (test muiy=347) 12.3 fL 9.4-12.4 NUCLEATED RED BLOOD CELLS (BEAKER) (test jfob=288) 0 /100 WBC 0-0 NEUTROPHILS RELATIVE PERCENT (BEAKER) (test khjm=030) 56 % LYMPHOCYTES RELATIVE PERCENT (BEAKER) (test clnp=952) 32 % MONOCYTES RELATIVE PERCENT (BEAKER) (test hzzy=763) 8 % EOSINOPHILS RELATIVE PERCENT (BEAKER) (test cmbk=900) 2 % BASOPHILS RELATIVE PERCENT (BEAKER) (test eblb=422) 1 % NEUTROPHILS ABSOLUTE COUNT (BEAKER) (test odii=724) 5.21 K/ L 1.78-5.38 LYMPHOCYTES ABSOLUTE COUNT (BEAKER) (test ppgh=463) 2.96 K/ L 1.32-3.57 MONOCYTES ABSOLUTE COUNT (BEAKER) (test veid=751) 0.77 K/ L 0.30-0.82 EOSINOPHILS ABSOLUTE COUNT (BEAKER) (test zwzl=429) 0.20 K/ L 0.04-0.54 BASOPHILS ABSOLUTE COUNT (BEAKER) (test kunl=815) 0.09 K/ L 0.01-0.08 IMMATURE GRANULOCYTES-RELATIVE PERCENT (BEAKER) (test vqkx=7850) 0 % 0-1 RAD, CHEST, 2 [id number] 08:58:00Pre-op testingReason for Exam:->Pre-op for donor for kidney transplantFINAL REPORT Chest 2 views 11/29/2017 8:58 AM CLINICAL HISTORY: Pre-op for donor for kidney transplant COMPARISON: 08/31/2017 FINDINGS: The lungs are clear. Cardiomediastinal contours are within normal limits. The central pulmonary vasculature is not engorged. The visualized skeleton is intact. IMPRESSION: No acute radiographic abnormalities. Signed: Que Persaud Verified Date/Time: 11/29/2017 08:58:17 Reading Location: [address] Neuro Reading Room E [id number] 15:25:00* Test Item Value Reference Range Comments CULTURE (BEAKER) (test yxlm=5082) No growth CYTOMEGALOVIRUS ANTIBODY, [id number] 14:46:00* Test Item Value Reference Range Comments CYTOMEGALOVIRUS IGM ANTIBODY (BEAKER) (test ueky=261) Negative EBV-VCA ANTIBODY, [id number] 14:46:00* Test Item Value Reference Range Comments LAURA-ROYAL VCA IGG (BEAKER) (test xrlg=835) Positive EBV-VCA ANTIBODY, [id number] 14:46:00* Test Item Value Reference Range Comments LAURA-ROYAL VCA IGM (BEAKER) (test wffy=477) Negative CYTOMEGALOVIRUS ANTIBODY, [id number] 14:45:00* Test Item Value Reference Range Comments CYTOMEGALOVIRUS IGG ANTIBODY (BEAKER) (test cmyv=365) Positive HEPATITIS C PCR, [id number] 12:30:00* Test Item Value Reference Range Comments HCV RESULT COMPONENT (BEAKER) (test ekcl=8780) HCV RNA not detected HCV RNA not detected This test uses a Real-Time Polymerase Chain Reaction (RT-PCR) methodology and wa s performed using [employer] Ampliprep/VIR[employer]IL TaqMan HCV test kit version 2.0 ([employer]).Reportable range for this assay is 15 - 100,000,000 IU per mL (1.18 - 8.00 Log IU/mL).CREATININE [id number] 11:16:00* Test Item Value Reference Range Comments CREATININE CLEARANCE (BEAKER) (test snok=518) 135.4 mL/min 70.0-140.0 VOLUME, TOTAL (BEAKER) (test vnzy=3606) 1800 ml CREATININE URINE (BEAKER) (test rgqu=846) 118.7 mg/dL GNID-SOMKFLIEOXS-841 (BEAKER) (test lshu=6429) Camelia Degroot MD (electronic signature) [id number] 02:23:00* Test Item Value Reference Range Comments RPR SCREEN (BEAKER) (test deld=335) Nonreactive Nonreactive CT, CTA [id number] 18:08:00CTA of abdomen and pelvis with and without contrast to visually display the aorta, renal arteries, iliac, and kidneys to be able to follow in the OR during donor nephrectomy. Please describe venous anatomy of both kidneys in all cases. Please measure distance from aorta to renal artery bifurcation. If pt is allergic to iodine, follow protocol prior to testing. Please provide 3-D reconstruction.Location[facility] HospitalAddendum BeginsREPORT STATUS:A Addendum: I agree with the previously described non vascular findings. Signed: Aisha Rey MDReport Verified Date/Time: 08/31/2017 18:08:47 Reading Location: [place] [address] Angio Body Reading RoomAddendum EndsFINAL REPORT CT angiography of the abdominal aorta and renal arteries, 31 August 2017. INDICATION: This is a 51 year old male being evaluated as a potential renal donor. This study is performed in an attempt to avoid an invasive procedure. TECHNIQUE: Spiral acquisition before and during intravenous contrast administration using a GE multidetector CT scanner. Images were obtained before and during the dynamic passage of intravenous contrast material. Multi-planar 3-D volume-rendering reconstruction was performed using an independent workstation interactively by the interpreting physician as well as the 3-D specialist for optimal visualisation of the vital anatomy for renal transplantation. Please refer to the contrast sheet scanned in the EPIC system for the amount and route of contrast given. This exam was performed according to our departmental dose-optimisation programme, which includes automated exposure control, adjustment of the mA and/or kV according to patient size and/or use of iterative reconstruction technique. Dose modulation, iterative reconstruction, and/or weight based adjustment of the mA/kV was utilized to reduce the radiation dose to as low as reasonably achievable. FINDINGS: VASCULAR: The abdominal aorta is normal in course, calibre and contour. No atherosclerosis is i dentified. No aneurysmal dilation is seen. There is no evidence of acute aortic pathology, specifically, there is no dissection, intramural hematoma, or contain ed rupture. Quantitative dimensions of the abdominal aorta2 are as follows: 2 .0 cm at the mesenteric segment; 1.8 cm at the renal segment; and 1.7 cm at the aortic bifurcation. The pelvic arteries and veins are patent with no arterial stenosis or venous thrombosis identified. There are single left and right renal arteries that are widely patent. The left renal artery bifurcates at 4.9 cm fro m the origin of the aorta. The right renal artery bifurcates at at least 4.9 cm from the origin of the aorta. The left renal artery measures 6.2 x 5.5 mm in jacinto meter that is origin. The right renal artery measures 5.7 x 5.7 mm at its origin . There are single left and right renal veins that drain normally into inferior vena cava (i.e. the left renal vein is anterior to the IVC). The left renal ve in enters the IVC with a calibre of 14.9 x 11.1 mm and the right renal vein ente rs the IVC will a calibre of 12.2 x 10.8 mm. The coeliac axis, SMA, and JUNAID ar e widely patent. There is small replaced right hepatic artery identified, common variant. The mesenteric veins are widely patent. NON-VASCULAR:- No pleural effu devendra is identified in the lung bases. No acute pathology is identified, where vi sualised. The spleen, liver, gallbladder and pancreas appear normal. Small splen ule is present. The liver edge is smooth. No abnormal enhancing structure is garrett ntified. Of note, in the AP orientation, the spleen measures 13.7 cm that is min imally prominent, however, of uncertain significance. Correlate clinically. The adrenal glands are normal in size and shape. Both kidneys are normal in size and shape. There is no evidence for hydronephrosis, or perirenal fluid collectio n. No renal stone is present. The right kidney measures 12.6 cm in length and wi th a parenchymal volume of 177 cc. The left kidney measures 12.0 cm in length a nd with a parenchymal volume of 184 cc. There are single ureters, bilaterally. T here is no significant retroperitoneal adenopathy. No free fluid or free air is identified. The prostate gland is unremarkable with punctate calcification garrett ntified. The bladder has no gross abnormality seen. Bowel is not well evaluated in CT angiography as enteric contrast is not given. No gross abnormality is iden tified. The appendix appears unremarkable. Tiny fat-containing inguinal hernia i s identified in the left. No acute bony pathology is present. CONCLUSIONS: 1. T he kidneys are normal in size and shape. There is no acute renal pathology. Cory ntitative dimensions and volumes are as described above. 2. Single renal arline chito and veins, bilaterally, that are widely patent. 3. The abdominal aorta is normal in course, calibre and contour. There is no evidence of acute aortic pathology, specifically, there is no dissection, intramural hematoma, or contain ed rupture. Quantitative dimension of the aorta are as noted. 4. Other findings as described above. 5. An addendum will be dictated regarding the non-vascular findings as the Director News Radiologist. Signed: Rosalio Robertsepganga mayorga Date/Time: 08/31/2017 10:27:45 Reading Location: [facility] P047 Cardiology MR I , CHEST, 2 [id number] 15:47:00Reason for Exam:->Potential living donor for kidney transplantLocation[facility] Chest two views INDICATION: Potential living donor for kidney transplant COMPARISON: None available IMPRESSION: There is no focal consolidation, vascular congestion, pleural effusion, or pneumothorax. Heart size is within normal limits. Mild aortic arch calcification is present. The bones appear intact. Signed: Carmen Hoover MDReport Verified Date/Time: 08/31/2017 15:47:41 Reading Location: [facility] Radiology Reading Room Tsering ctronically signed by: CARMEN HOOVER M.D. on 08/31/2017 03:47 PM MICROALBUMIN, 24 HOUR [id number] 14:41:00* Test Item Value Reference Range Comments VOLUME, TOTAL (BEAKER) (test orcf=3312) 1800 ml MICROALBUMIN URINE (BEAKER) (test vrnz=6834) < mg/dL MICROALBUMIN 24 HOUR URINE (BEAKER) (test iqri=569) < mg/24 hrs 0-30 PROTEIN, 24 HOUR [id number] 14:41:00* Test Item Value Reference Range Comments PROTEIN, 24HR URINE (BEAKER) (test udqc=6733) < mg/24hr 0-300 VOLUME, TOTAL (BEAKER) (test uklw=0887) 1800 ml PROTEIN, URINE (BEAKER) (test obkc=3269) < mg/dL 0-14 HEPATITIS B SURFACE [id number] 12:24:00* Test Item Value Reference Range Comments HEPATITIS B SURFACE ANTIBODY (BEAKER) (test jipb=378) < mIU/mL <8.0 [id number] 12:21:00* Test Item Value Reference Range Comments PROSTATE SPECIFIC ANTIGEN (BEAKER) (test hzrq=247) 1.7 ng/mL 0.0-4.0 HEPATITIS B SURFACE [id number] 11:53:00* Test Item Value Reference Range Comments HEPATITIS B SURFACE ANTIGEN (2) (BEAKER) (test agdh=6845) Nonreactive Nonreactive HEPATITIS B CORE ANTIBODY, [id number] 11:53:00* Test Item Value Reference Range Comments HEPATITIS B CORE IGM ANTIBODY (BEAKER) (test zdpn=612) Nonreactive Nonreactive HIV-1 ANTIGEN WITH HIV-1/2 [id number] 11:53:00* Test Item Value Reference Range Comments HIV-1 ANTIGEN WITH HIV 1\T\2 ANTIBODY (2) (BEAKER) (test cgts=8669) Nonreactive Nonreactive URINALYSIS W/ [id number] 11:25:00* Test Item Value Reference Range Comments COLOR (BEAKER) (test cvbv=248) Yellow CLARITY (BEAKER) (test yuzu=625) Clear SPECIFIC GRAVITY UA (BEAKER) (test clls=895) 1.020 1.001-1.035 PH UA (BEAKER) (test ujzd=527) 5.5 5.0-8.0 PROTEIN UA (BEAKER) (test rzrj=115) Negative Negative GLUCOSE UA (BEAKER) (test iumn=213) Negative Negative KETONES UA (BEAKER) (test wkej=795) Negative Negative BILIRUBIN UA (BEAKER) (test yjoq=088) Negative Negative BLOOD UA (BEAKER) (test iqdz=907) Negative Negative NITRITE UA (BEAKER) (test hykj=935) Negative Negative LEUKOCYTE ESTERASE UA (BEAKER) (test vqdl=510) Negative Negative UROBILINOGEN UA (BEAKER) (test kntb=607) 0.2 mg/dL 0.2-1.0 RBC UA (BEAKER) (test llwh=246) 0 /HPF WBC UA (BEAKER) (test jpcx=816) 0 /HPF MUCUS (BEAKER) (test lrwi=1406) Few SOURCE(BEAKER) (test xrzr=2362) [id number] 10:00:00* Test Item Value Reference Range Comments PHOSPHORUS (BEAKER) (test prnp=861) 3.1 mg/dL 2.3-4.7 [id number] 10:00:00* Test Item Value Reference Range Comments MAGNESIUM (BEAKER) (test bksw=228) 2.4 mg/dL 1.6-2.6 LIPID [id number] 10:00:00* Test Item Value Reference Range Comments TRIGLYCERIDES (BEAKER) (test iwkd=177) 100 mg/dL CHOLESTEROL (BEAKER) (test ujsk=008) 200 mg/dL HDL CHOLESTEROL (BEAKER) (test muea=645) 47 mg/dL LDL CHOLESTEROL CALCULATED (BEAKER) (test balh=137) 133 mg/dL Triglyceride Reference Range: Low Risk <150 Borderline 150-199 High Risk 200-499 Very High Risk >=500Cholesterol Reference Range: Low Risk <200 Borderline 200-239 High Risk >240HDL Cholesterol Reference Range: Low Risk >=60 High Risk <40LDL Cholesterol Reference Range: Optimal <100 Near Optimal 100-129 Borderline 130-159 High 160-189 Very High >=190 [id number] 10:00:00* Test Item Value Reference Range Comments CREATININE (YOBANY) (test wzof=181) 0.92 mg/dL 0.57-1.25 EGFR (YOBANY) (test cnoc=2281) 87 mL/min/1.73 sq m ESTIMATED GFR IS NOT ACCURATE CREATININE CLEARANCE IN PREDICTING GLOMERULAR FILTRATION RATE. ESTIMATED GFR IS NOT APPLICABLE FOR DIALYSIS PATIENTS. GAMMA GLUTAMYL TRANSFERASE (GGT)2017-08-31 10:00:00* Test Item Value Reference Range Comments GAMMA GLUTAMYL TRANSFERASE (MARIAHAKER) (test ltue=769) 22 U/L 9-64 LACTATE DEHYDROGENASE (LDH)2017-08-31 10:00:00* Test Item Value Reference Range Comments LACTATE DEHYDROGENASE (YOBANY) (test cscq=199) 163 U/L 125-220 [id number] 09:46:00* Test Item Value Reference Range Comments PROTIME (YOBANY) (test hyph=715) 14.4 seconds 11.7-14.7 INR (MARIAHAKER) (test xinb=220) 1.1 <=5.9 PARTIAL THROMBOPLASTIN TIME (MARIAHAKER) (test ioyt=736) 32.0 seconds 22.5-36.0 RECOMMENDED COUMADIN/WARFARIN INR THERAPY RANGESSTANDARD DOSE: 2.0 - 3.0 Inclu shahab: PROPHYLAXIS for venous thrombosis, systemic embolization; TREATMENT for richard ous thrombosis and/or pulmonary embolus.HIGH RISK: Target INR is 2.5-3.5 for pat ients with mechanical heart valves.GLUCOSE TOLERANCE, 1 [id number] 12:12:00 * Test Item Value Reference Range Comments GLUCOSE TOLERANCE TEST 1 HOUR (YOBANY) (test furk=647) 185 mg/dL GTT FASTING NETWORKED (YOBANY) (test vbnz=6354) 89 mg/dL Please take glucose level at fasting, 1 hour, \T\ 2 hoursGLUCOSE TOLERANCE, 2 [id number] 12:12:00* Test Item Value Reference Range Comments GTT FASTING NETWORKED (BEAKER) (test ygke=1782) 89 mg/dL GTT 1 HR NETWORKED (BEAKER) (test slcb=1287) 185 mg/dL GLUCOSE TOLERANCE TEST 2 HOUR (BEAKER) (test lkoe=949) 165 mg/dL Please take glucose level at fasting, 1 hour, \T\ 2 hoursGTT [id number] 08:29:00* Test Item Value Reference Range Comments GLUCOSE TOLERANCE TEST FASTING (BEAKER) (test kfis=689) 89 mg/dL Please take glucose level at fasting, 1 hour, \T\ 2 hoursURINE [id number] 11:53:00* Test Item Value Reference Range Comments CULTURE (BEAKER) (test lluc=2288) 30-39,000 col/mL skin [place] HEMOGLOBIN [id number] 16:49:00* Test Item Value Reference Range Comments HEMOGLOBIN A1C (BEAKER) (test iffe=505) 5.7 % 4.3-6.1 URINALYSIS W/ [id number] 12:11:00* Test Item Value Reference Range Comments COLOR (BEAKER) (test jdju=750) Yellow CLARITY (BEAKER) (test rosi=494) Clear SPECIFIC GRAVITY UA (BEAKER) (test htcf=378) 1.016 1.001-1.035 PH UA (BEAKER) (test uvex=667) 5.5 5.0-8.0 PROTEIN UA (BEAKER) (test jeqj=909) Negative Negative GLUCOSE UA (BEAKER) (test bolg=451) Negative Negative KETONES UA (BEAKER) (test nvib=756) Negative Negative BILIRUBIN UA (BEAKER) (test shbm=404) Negative Negative BLOOD UA (BEAKER) (test suvm=237) Negative Negative NITRITE UA (BEAKER) (test trrr=081) Negative Negative LEUKOCYTE ESTERASE UA (BEAKER) (test yyje=526) Negative Negative UROBILINOGEN UA (BEAKER) (test nzgk=245) 0.2 mg/dL 0.2-1.0 RBC UA (BEAKER) (test yarb=745) 0 /HPF WBC UA (BEAKER) (test nhze=235) 0 /HPF MUCUS (BEAKER) (test vcxe=0902) Rare SOURCE(BEAKER) (test yqkh=8519) PROTEIN, RANDOM [id number] 12:08:00* Test Item Value Reference Range Comments PROTEIN, URINE (BEAKER) (test esbh=9876) < mg/dL 0-14 HEPATIC FUNCTION [id number] 12:08:00* Test Item Value Reference Range Comments TOTAL PROTEIN (BEAKER) (test qjra=983) 7.4 gm/dL 6.0-8.3 ALBUMIN (BEAKER) (test ljnu=1389) 4.1 g/dL 3.5-5.0 BILIRUBIN TOTAL (BEAKER) (test ccet=178) 0.8 mg/dL 0.2-1.2 BILIRUBIN DIRECT (BEAKER) (test sqob=454) 0.3 mg/dL 0.1-0.5 ALKALINE PHOSPHATASE (BEAKER) (test zrac=312) 75 U/L 40-150 AST (SGOT) (BEAKER) (test qmoy=059) 21 U/L 5-34 ALT (SGPT) (BEAKER) (test tusc=919) 20 U/L 6-55 BASIC METABOLIC [id number] 12:08:00* Test Item Value Reference Range Comments SODIUM (BEAKER) (test zjrp=206) 139 meq/L 136-145 POTASSIUM (BEAKER) (test nywm=081) 4.5 meq/L 3.5-5.1 CHLORIDE (BEAKER) (test cbrq=281) 105 meq/L 98-107 CO2 (BEAKER) (test jnky=220) 26 meq/L 22-29 BLOOD UREA NITROGEN (BEAKER) (test rmjc=756) 13 mg/dL 7-21 CREATININE (BEAKER) (test lfdr=474) 0.82 mg/dL 0.57-1.25 GLUCOSE RANDOM (BEAKER) (test exye=630) 92 mg/dL 70-105 CALCIUM (BEAKER) (test qtnk=612) 9.3 mg/dL 8.4-10.2 EGFR (BEAKER) (test dybd=9508) 100 mL/min/1.73 sq m ESTIMATED GFR IS NOT ACCURATE CREATININE CLEARANCE IN PREDICTING GLOMERULAR FILTRATION RATE. ESTIMATED GFR IS NOT APPLICABLE FOR DIALYSIS PATIENTS. CREATININE, RANDOM [id number] 12:07:00* Test Item Value Reference Range Comments CREATININE URINE (BEAKER) (test bdyn=565) 120.0 mg/dL Reference Range: No NormalsMICROALBUMIN, RANDOM [id number] 12:07:00* Test Item Value Reference Range Comments MICROALBUMIN URINE (BEAKER) (test yznr=4193) 0.6 mg/dL Reference Range: No NormalsCBC W/PLT COUNT & AUTO [id number] 11:56:00* Test Item Value Reference Range Comments WHITE BLOOD CELL COUNT (BEAKER) (test sfvw=754) 6.7 K/ L 3.5-10.5 RED BLOOD CELL COUNT (BEAKER) (test pcig=974) 5.92 M/ L 4.63-6.08 HEMOGLOBIN (BEAKER) (test sujs=396) 17.6 GM/DL 13.7-17.5 HEMATOCRIT (BEAKER) (test lvqr=018) 51.5 % 40.1-51.0 MEAN CORPUSCULAR VOLUME (BEAKER) (test ouck=953) 87.0 fL 79.0-92.2 MEAN CORPUSCULAR HEMOGLOBIN (BEAKER) (test wftm=033) 29.7 pg 25.7-32.2 MEAN CORPUSCULAR HEMOGLOBIN CONC (BEAKER) (test pxpd=734) 34.2 GM/DL 32.3-36.5 RED CELL DISTRIBUTION WIDTH (BEAKER) (test hqbo=901) 12.0 % 11.6-14.4 PLATELET COUNT (BEAKER) (test tbet=986) 192 K/CU MM 150-450 MEAN PLATELET VOLUME (BEAKER) (test aexe=730) 12.2 fL 9.4-12.4 NUCLEATED RED BLOOD CELLS (BEAKER) (test xvqs=522) 0 /100 WBC 0-0 NEUTROPHILS RELATIVE PERCENT (BEAKER) (test alkz=054) 64 % LYMPHOCYTES RELATIVE PERCENT (BEAKER) (test raxn=106) 26 % MONOCYTES RELATIVE PERCENT (BEAKER) (test boay=114) 7 % EOSINOPHILS RELATIVE PERCENT (BEAKER) (test nqlf=745) 2 % BASOPHILS RELATIVE PERCENT (BEAKER) (test xhre=154) 1 % NEUTROPHILS ABSOLUTE COUNT (BEAKER) (test ejdp=052) 4.30 K/ L 1.78-5.38 LYMPHOCYTES ABSOLUTE COUNT (BEAKER) (test fqug=087) 1.78 K/ L 1.32-3.57 MONOCYTES ABSOLUTE COUNT (BEAKER) (test cujy=350) 0.49 K/ L 0.30-0.82 EOSINOPHILS ABSOLUTE COUNT (BEAKER) (test vuhz=588) 0.10 K/ L 0.04-0.54 BASOPHILS ABSOLUTE COUNT (BEAKER) (test fest=096) 0.04 K/ L 0.01-0.08 IMMATURE GRANULOCYTES-RELATIVE PERCENT (BEAKER) (test dadn=3718) 0 % 0-1
[2019-01-01] MEDS ORDERED: NEOMYCIN/POLYMYX/BACITR OINT 0.9 GM PKT TOP ONE (16:45)
[2019-01-01] MEDS ORDERED: LIDOCAINE 1% 5ML-MPF INJ ONE (16:45)
[2019-01-01 17:28] VITALS: BP 145/95
== END 2019-01-01 17:30 | disposition home or self-care (01) ==
LOC: ER 16:04
DX: S01.81XA Laceration without foreign body of other part of head, initial encounter (principal); W51.XXXA Accidental striking against or bumped into by another person, initial encounter; Y93.67 Activity, basketball; Y92.310 Basketball court as the place of occurrence of the external cause; I10 Essential (primary) hypertension; F17.200 Nicotine dependence, unspecified, uncomplicated
CPT/HCPCS: 99282

== ENCOUNTER 2024-09-08 14:43 | Emergency (ER) | payer BC ==
[~2024-09-08] VITALS: Ht 175.3 cm; Wt 96.2 kg
[~2024-09-08 14:43] MED LIST changes: +AMOX TR-K CLV1 EAC2 PO
[2024-09-08 15:00] VITALS: PULSE 87; RESP 18; TEMP 99.3; O2SAT 98
[2024-09-08 16:12] LABS: STREPTOCOCCUS GRP A ANTIGEN NEGATIVE (NEGATIVE)
[2024-09-08 16:25] LABS: INFLUENZA A AG NEGATIVE (NEGATIVE); INFLUENZA B AG NEGATIVE (NEGATIVE)
[2024-09-08 16:26] LABS: CORONAVIRUS COVID-19 AG NEGATIVE (NEGATIVE)
[2024-09-08] MEDS ORDERED: AZITHROMYCIN250 MG PO (17:18)
== END 2024-09-08 17:29 | disposition home or self-care (01) ==
LOC: ER 15:25
DX: J02.9 Acute pharyngitis, unspecified (principal); I88.8 Other nonspecific lymphadenitis; I10 Essential (primary) hypertension; Z11.52 Encounter for screening for COVID-19
CPT/HCPCS: 83518; 87070; 99283